=== PATIENT | male | born 1970 | race Caucasian/White ===

== ENCOUNTER 2021-11-30 12:36 | Emergency (ER) | payer OTHER ==
[~2021-11-30] VITALS: Ht 182.9 cm; Wt 72.6 kg
--- NOTE | 2021-11-30 12:50 | NUR ---
ACTIVATED CODE STROKE
--- NOTE | 2021-11-30 12:53 | NUR ---
TELE MED NEURO CONSULT ACTIVATED, AWAITING CALL FROM NEURO
--- NOTE | 2021-11-30 12:55 | NUR ---
PATIENT TO CT
--- NOTE | 2021-11-30 13:00 | NUR ---
PT CAME IN C/O LEFT EYE VISUAL CHANGES WITH LEFT ARM WEAKNESS WHILE HE WAS DRIVING WHICH TOOK 3 MINUTES. PT CONNECTED TO MONITOR ,A/O X4.
[2021-11-30 13:08] LABS: BASOPHILS # (AUTO) 0.1 K/uL (0.0-0.2); BASOPHILS % (AUTO) 1.2 % (0.0-2.0); EOSINOPHILS % (AUTO) 2.5 % (0.0-6.0); HEMATOCRIT 42 % (39-51); HEMOGLOBIN 13.7 g/dL (13.5-17.5); LYMPHOCYTES # (AUTO) 1.9 K/uL (0.8-4.8); LYMPHOCYTES % (AUTO) 34.7 % (20.0-44.0); MEAN CORPUSCULAR HGB CONC 33 g/dl (31.0-36.0); MEAN CORPUSCULAR VOLUME 89 fL (80-96); MONOCYTES # (AUTO) 0.6 K/uL (0.1-1.30); NEUTROPHILS # (AUTO) 2.9 K/uL (1.8-8.9); NEUTROPHILS % (AUTO) 51.6 % (43.0-81.0); PLATELET COUNT (AUTO) 258 K/uL (150-450); RED BLOOD CELL COUNT(AUTO) 4.69 MIL/uL (4.5-6.0); WHITE BLOOD COUNT (AUTO) 5.5 K/uL (4.3-11.0)
--- NOTE | 2021-11-30 13:09 | NUR ---
FAX CLINICALS TO [facility] FROM [facility] ([employer])
--- NOTE | 2021-11-30 13:12 | NUR ---
PER DR CALVO OF RADIOLOGY, DID NOT SEE ANY STROKE ON THE CT.
[2021-11-30 13:14] LABS: CALCIUM, SERUM 8.7 mg/dL (8.5-10.1); CARBON DIOXIDE 27 mmol/L (21-32); CHLORIDE 105 mmol/L (98-107); GLUCOSE 91 mg/dL (74-106); SODIUM SERUM 141 mmol/L (136-145); UREA NITROGEN, BLOOD 15 mg/dL (7-18)
--- NOTE | 2021-11-30 13:47 | NUR ---
CALLED TELE NEURO, REPAGED DR HERNANDEZ
--- NOTE | 2021-11-30 14:04 | NUR ---
REPAGED NUEROLOGIST TO SPEAK TO DR. AVILA
[2021-11-30] MEDS ORDERED: IV NS 0.9% 250 ML IV ONE (15:01)
[2021-11-30] MEDS ORDERED: IOHEXOL-350 100 ML VIAL IV ONE (15:01)
--- NOTE | 2021-11-30 15:24 | NUR ---
TRANSFER AND AMBULANCE INFO RECEIVED A CALL FROM . PT WILL BE TRANSFERED TO [facility]. ROOM NUMBER 204-A. NUMBER FOR REPORT IS [phone]. AMBULANCE ETA IS [phone].
--- NOTE | 2021-11-30 16:39 | NUR ---
[facility]
--- NOTE | 2021-11-30 17:13 | NUR ---
Patient does not wish to proceed with medical care recommended by Dr. Cecy Woodall ). Patient given information related to possible complications, up to and including , which could occur as a result of leaving the hospital at this time. Patient verbalizes understanding of risks involved due to leaving against medical advice. Patient has signed AMA form.IV removed. Catheter intact and site benign. Pressure and 4x4 applied to site. No bleeding noted.
[2021-11-30 17:18] VITALS: BP 121/78
== END 2021-11-30 17:18 | disposition left against medical advice (07) ==
LOC: ER 12:39
DX: G45.9 Transient cerebral ischemic attack, unspecified (principal); Z20.822 Contact with and (suspected) exposure to COVID-19; Z53.29 Procedure and treatment not carried out because of patient's decision for other reasons; Z86.73 Personal history of transient ischemic attack (TIA), and cerebral infarction without residual deficits
CPT/HCPCS: 36415; 70450; 70496; 70498; 71045; 80048; 80307; 82962; 84484; 85025; 85730; 87081; 87426; 93005; 99291; C9803; J7050; Q9967; U0003